=== PATIENT | female | born 1950 | race Caucasian/White ===

== ENCOUNTER 2018-06-15 08:39 | Day surgery (SDC) | payer OTHER ==
[~2018-06-15 08:39] MED LIST: AMPDEX5; ASPI325 PO; ASPI81EC PO; CLON.5; CODACE30 PO; FLUO20 PO; ISOD40ER; ISODIN20 PO; LEVFLO500 PO; METF500; METPHE20 PO; Omeprazole20 M1; PRAV20; ROSU10TA PO; SERT25; Zofran Odt4 MG SL
== END 2018-06-15 22:50 | disposition home or self-care (01) ==
LOC: MOI MAM 08:39
PROC: 0HBU3ZX Excision of Left Breast, Percutaneous Approach, Diagnostic (ICD-10-PCS; principal; 2018-06-15)
DX: N60.92 Unspecified benign mammary dysplasia of left breast (principal); R92.0 Mammographic microcalcification found on diagnostic imaging of breast
CPT/HCPCS: 19081; 88305